=== PATIENT | female | born 1985 | race Two or more races ===

== ENCOUNTER 2024-11-24 17:50 | Emergency (ER) | payer OTHER ==
[~2024-11-24] VITALS: Ht 167.6 cm; Wt 76.2 kg
[2024-11-24] MEDS ORDERED: MILLIPRED5 MG PO (19:09)
[2024-11-24] MEDS ORDERED: GRALISE600 MG PO (19:09)
[2024-11-24] MEDS ORDERED: BACLOFEN10 MG PO (20:10)
[2024-11-24] MEDS ORDERED: DICLOFENAC SODI75 MG PO (20:10)
== END 2024-11-24 21:56 | disposition home or self-care (01) ==
LOC: ER 17:51
DX: M54.50 Low back pain, unspecified (principal); I10 Essential (primary) hypertension; Z87.09 Personal history of other diseases of the respiratory system